=== PATIENT | female | born 1985 | race African-American/Black ===

== ENCOUNTER 2020-02-02 21:07 | Emergency (ER) | payer MEDICAID ==
[~2020-02-02] VITALS: Ht 157.5 cm; Wt 63.0 kg
[2020-02-02 22:29] LABS: BASOPHILS % 0.6 % (0.0-2.0); EOSINOPHILS % 0.5 % (0.0-5.0); HEMATOCRIT. 34.9 % (36.0-48.0); HEMOGLOBIN. 11.9 g/dL (12.0-16.0); LYMPHOCYTES % 20.4 % (20.0-50.0); MEAN CORPUSCULAR HEMOGLOBIN 32.7 pg (28.0-32.0); MEAN CORPUSCULAR VOLUME 96.2 fL (81.0-99.0); MEAN PLATELET VOLUME 7.8 fl (7.4-10.4); MONOCYTES % 6.9 % (2.0-8.0); NEUTROPHILS % 71.6 % (40.0-76.0); PLATELET 293 x1000/uL (130-400); RED BLOOD CELL COUNT 3.62 mill/uL (4.2-5.4); RED CELL DISTRIBUTION WIDTH 13.2 % (11.6-14.6)
[2020-02-02] MEDS ORDERED: ACETAMINOPHEN 500MG TABLET PO ONE (22:30)
[2020-02-02 22:35] LABS: CHLORIDE 102 mEq/L (98-107)
[2020-02-02 22:58] LABS: B-HCG QUANTITATIVE 41946 mIU/mL (<3)
[2020-02-02 23:43] VITALS: BP 129/86
== END 2020-02-02 23:48 | disposition home or self-care (01) ==
LOC: ER 21:07
DX: O99.412 Diseases of the circulatory system complicating pregnancy, second trimester (principal); R07.89 Other chest pain; O46.92 Antepartum hemorrhage, unspecified, second trimester; O99.512 Diseases of the respiratory system complicating pregnancy, second trimester; J45.909 Unspecified asthma, uncomplicated; O99.322 Drug use complicating pregnancy, second trimester; Z91.040 Latex allergy status; O26.892 Other specified pregnancy related conditions, second trimester; Z98.890 Other specified postprocedural states; Z3A.22 22 weeks gestation of pregnancy
CPT/HCPCS: 36415; 71045; 76801; 80053; 81025; 83880; 84484; 84702; 85025; 85379; 86850; 86900; 93005; 99285

== ENCOUNTER 2025-06-13 18:52 | Emergency (ER) | payer MEDICAID ==
[~2025-06-13] VITALS: Ht 154.9 cm; Wt 62.0 kg
[2025-06-13 19:04] VITALS: O2SAT 100
[2025-06-13 20:02] LABS: BASOPHILS % 0.6 % (0.0-2.0); EOSINOPHILS % 0.3 % (0.0-5.0); HEMATOCRIT. 32.6 % (36.0-48.0); HEMOGLOBIN. 11.0 g/dL (12.0-16.0); LYMPHOCYTES % 26.6 % (20.0-50.0); MEAN PLATELET VOLUME 7.7 fl (7.4-10.4); MONOCYTES % 6.8 % (2.0-8.0); NEUTROPHILS % 65.7 % (40.0-76.0); PLATELET 310 x1000/uL (130-400); RED BLOOD CELL COUNT 3.40 mill/uL (4.2-5.4); RED CELL DISTRIBUTION WIDTH 13.7 % (11.6-14.6)
[2025-06-13 20:22] LABS: CREATININE 1.0 mg/dL (0.6-1.0); UREA NITROGEN BLOOD 12 mg/dL (9-23)
[2025-06-13 20:23] LABS: B-HCG QUANTITATIVE 87 mIU/mL (<6)
[2025-06-13 23:15] VITALS: BP 155/98; PULSE 72; RESP 22; TEMP 36.8; O2SAT 99
== END 2025-06-13 23:18 | disposition home or self-care (01) ==
LOC: ER 18:52
DX: O46.90 Antepartum hemorrhage, unspecified, unspecified trimester (principal); J45.909 Unspecified asthma, uncomplicated; F10.90 Alcohol use, unspecified, uncomplicated; Z79.899 Other long term (current) drug therapy; Y90.9 Presence of alcohol in blood, level not specified
CPT/HCPCS: 36415; 76801; 80048; 81025; 84702; 85025; 99284

== ENCOUNTER 2025-07-17 18:04 | Emergency (ER) | payer MEDICAID ==
[~2025-07-17] VITALS: Ht 154.9 cm; Wt 61.0 kg
[2025-07-17 18:35] VITALS: TEMP 36.9; O2SAT 100
[2025-07-17 18:51] LABS: CLARITY URINE CLEAR (CLEAR); COLOR URINE YELLOW (YELLOW); GLUCOSE URINE NEGATIVE (NEGATIVE); KETONES URINE NEGATIVE (NEGATIVE); LEUKOCYTE ESTERASE URINE TRACE (NEGATIVE); NITRITE URINE NEGATIVE (NEGATIVE); OCCULT BLOOD URINE 3+ (NEGATIVE); PH URINE 6.0 (4.5-8.0); PROTEIN URINE NEGATIVE (NEGATIVE); SPECIFIC GRAVITY URINE 1.018 (1.005-1.030); UROBILINOGEN URINE 1.0 E.U./dL (0.2-1.0)
[2025-07-17 19:03] LABS: BASOPHILS % 0.8 % (0.0-2.0); EOSINOPHILS % 0.7 % (0.0-5.0); HEMATOCRIT. 34.4 % (36.0-48.0); HEMOGLOBIN. 11.7 g/dL (12.0-16.0); LYMPHOCYTES % 30.4 % (20.0-50.0); MEAN PLATELET VOLUME 7.9 fl (7.4-10.4); MONOCYTES % 6.9 % (2.0-8.0); NEUTROPHILS % 61.2 % (40.0-76.0); PLATELET 330 x1000/uL (130-400); RED BLOOD CELL COUNT 3.59 mill/uL (4.2-5.4); RED CELL DISTRIBUTION WIDTH 13.6 % (11.6-14.6)
[2025-07-17 19:06] LABS: BACTERIA URINE 2+; RBC URINE 15-25 /hpf (0-2); SQUAMOUS EPITHELIAL CELL URINE FEW /lpf (RARE/1+); WBC URINE 0-2 /hpf (0-2)
[2025-07-17 19:16] LABS: HCG SCREEN NEGATIVE
[2025-07-17 19:17] LABS: CREATININE 0.9 mg/dL (0.6-1.0); UREA NITROGEN BLOOD 12 mg/dL (9-23)
[2025-07-17 19:19] LABS: B-HCG QUANTITATIVE 5 mIU/mL (<6)
[2025-07-17] MEDS ORDERED: CEPH250C2 MT (20:00)
[2025-07-17 20:07] VITALS: BP 150/98; PULSE 65; RESP 12; O2SAT 100
== END 2025-07-17 20:13 | disposition home or self-care (01) ==
LOC: ER 18:04
DX: O03.88 Urinary tract infection following complete or unspecified spontaneous abortion (principal); N39.0 Urinary tract infection, site not specified; O03.9 Complete or unspecified spontaneous abortion without complication; R10.2 Pelvic and perineal pain; Z91.040 Latex allergy status
CPT/HCPCS: 36415; 76830; 76856; 80048; 81003; 81025; 84702; 84703; 85025; 86850; 86900; 99284

== ENCOUNTER 2025-10-31 10:24 | Emergency (ER) | payer MEDICAID ==
[~2025-10-31] VITALS: Ht 165.1 cm; Wt 70.0 kg
[~2025-10-31 10:24] MED LIST: CEPH250C2 MT
[2025-10-31 10:49] VITALS: O2SAT 100
[2025-10-31 13:04] VITALS: TEMP 36.6; O2SAT 100
[2025-10-31 13:08] VITALS: BP 145/93; PULSE 82; RESP 16
[2025-10-31] MEDS: KETOROLAC 15MG/ML VIAL IM ONE (13:08)
== END 2025-10-31 13:32 | disposition home or self-care (01) ==
LOC: ER 10:24
DX: M79.674 Pain in right toe(s) (principal); Z79.899 Other long term (current) drug therapy; Z91.040 Latex allergy status
CPT/HCPCS: 99283; 81025; 73630; 96372; J1885